=== PATIENT | female | born 1995 | race Caucasian/White ===

== ENCOUNTER 2016-10-09 01:51 | Emergency (ER) | payer OTHER ==
[2016-10-09 02:44] VITALS: RESP 16; O2SAT 97
[2016-10-09] MEDS ORDERED: ONDANSETRON DISINTEGRATING 4 MG TAB PO ONE (04:27)
[2016-10-09] MEDS ORDERED: AZITHROMYCIN 250 MG TAB PO ONE (04:27)
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
[2016-10-09 06:09] VITALS: BP 102/72; PULSE 74; TEMP 98.2
== END 2016-10-09 06:00 | disposition home or self-care (01) ==
LOC: EEVIPCON 01:51
DX: T74.21XA Adult sexual abuse, confirmed, initial encounter (principal)